=== PATIENT | female | born 2000 | race Caucasian/White ===

== ENCOUNTER 2023-06-18 12:49 | Outpatient (CLI) | payer OTHER ==
[~2023-06-18] VITALS: Ht 167.6 cm; Wt 96.4 kg
--- NOTE | 2023-06-18 13:00 | NUR ---
PT AMBULATED ONTO THE UNIT WITH SPOUSE FOR LABOR CHECK.PT DENIES LOF/VB AND CONTRACTIONS. PT REPORTS "FLYING LIGHTS", BILATERAL EDEMA, AND HEADACHES.PT REPORTS POSITIVE MOVEMENT.POC REVIEWED WITH PT.PT ADVISED TO CHANGE INTO GOWN AND PROVIDE URINE SAMPLE.PT VERBALIZES UNDERSTANDING.
[2023-06-18] MEDS ORDERED: PRENATAL TABLET PO (13:11)
[2023-06-18] MEDS ORDERED: FERRO-TIME325 MG PO (13:11)
[2023-06-18 13:30] VITALS: BP 95/59; PULSE 68
[2023-06-18 13:32] LABS: COLLECTION METHOD CLEAN CATCH
[2023-06-18 13:51] LABS: SQUAMOUS EPITHELIAL 20-50 /hpf (0-10); URINE APPEARANCE Hazy (CLEAR/HAZY); URINE BLOOD Negative (NEGATIVE); URINE COLOR Yellow (YELLOW); URINE GLUCOSE Negative (NEGATIVE); URINE KETONE Negative (NEGATIVE); URINE NITRATE Negative (NEGATIVE); URINE PROTEIN(semi-quant) Negative (NEGATIVE); URINE RBC 0-2 /hpf (0-2); URINE UROBILINOGEN 0.2 E.U/dL (0.2-1.0)
[2023-06-18 13:54] LABS: BASO % 0.5 % (0.0-2.0); EOS % 0.4 % (0.0-4.0); GRAN # 5.7 K/mm3 (1.4-6.5); GRAN % 70.1 % (42.2-75.2); LYMPH # 1.8 K/mm3 (1.2-3.4); LYMPH % 22.4 % (20.0-51.0); MEAN CELL VOLUME 88 fl (80.0-100.0); MEAN CORPUSCULAR HEMOGLOBIN 28 pg (27-31); MEAN CORPUSCULAR HGB CONC 32 g/dl (33.0-37.0); MEAN PLATELET VOLUME 10.8 fl (7.4-10.4); MONO # 0.5 K/mm3 (0.1-0.6); PLATELET COUNT 199 K/mm3 (130-400); RED BLOOD COUNT 3.87 M/mm3 (4.10-5.30); REDCELL DISTRIBUTION WIDTH-CV 12.5 % (11.5-14.5)
[2023-06-18 13:55] LABS: HEMATOCRIT 34.1 % (37.0-47.0)
[2023-06-18 14:00] VITALS: BP 102/62; PULSE 69
[2023-06-18 14:12] LABS: ALBUMIN 2.5 gm/dL (3.5-5.0); BILIRUBIN,TOTAL 0.2 mg/dL (0.2-1.2); CALCIUM 8.8 mg/dL (8.4-10.2); CREATININE, serum 0.51 mg/dL (0.57-1.11); POTASSIUM 3.8 mmol/L (3.5-4.5); TOTAL PROTEIN 5.6 gm/dL (6.2-8.1)
[2023-06-18] MEDS ORDERED: FLEXERIL5 MG PO (23:42)
[2023-06-18] MEDS ORDERED: MIRALAX PA17 GM/Dose PO (23:43)
== END 2023-06-18 14:45 | disposition home or self-care (01) ==
LOC: LDRO 12:49 → LDR 13:00 → LDRO 14:45
PROVIDERS: Obstetrics & Gynecology
DX: Z34.93 Encounter for supervision of normal pregnancy, unspecified, third trimester (principal); Z3A.34 34 weeks gestation of pregnancy
CPT/HCPCS: OP

== ENCOUNTER 2023-06-26 13:33 | Outpatient (CLI) | payer OTHER ==
[~2023-06-26] VITALS: Ht 167.6 cm; Wt 96.4 kg
--- NOTE | 2023-06-26 13:30 | NUR ---
PT AMBULATORY TO UNIT WITH MOTHER OF PT AND FATHER OF BABY. ORIENTED TO PLAN OF CARE AND ROOM. PT COMPLAINS OF LOWER BACK PAIN THAT RADIATES TO HER UMBILICUS WITH SOME PAIN RADIATING DOWN HER THIGHS, ALSO DESCRIBES LOF. EFM CAT 1, NO CTX SHOWN ON TOCO, SCANT AMOUNT OF MUCUS-LIKE LIQUID, POSITIVE REPORTS OF MOVEMENT. AMNIOTRACE NEGATIVE AND SVE CLOSED, THICK, AND HIGH PER THIS RN. PRENATALS AND HX REVIEWED WITH PT. MOTHER OF PT ANSWERS MANY QUESTIONS THAT THIS RN IS ASKING DIRECTLY TO PT. FATHER OF BABY SITTING AWAY FROM BED ON HIS PHONE.
[~2023-06-26 13:33] MED LIST: FERRO-TIME325 MG PO; FLEXERIL5 MG PO; MIRALAX PA17 GM/Dose PO; PRENATAL TABLET PO
[2023-06-26 14:00] VITALS: BP 121/75; PULSE 71
[2023-06-26 14:30] VITALS: BP 128/84; PULSE 78; TEMP 98.4
[2023-06-26 14:46] LABS: COLLECTION METHOD CLEAN CATCH
[2023-06-26 15:00] VITALS: BP 134/89; PULSE 70; TEMP 98.4
[2023-06-26 15:30] VITALS: BP 132/78; PULSE 75
[2023-06-26 15:32] LABS: URINE APPEARANCE Clear (CLEAR/HAZY); URINE BACTERIA Rare /hpf (NONE SEEN); URINE BLOOD Negative (NEGATIVE); URINE COLOR Yellow (YELLOW); URINE GLUCOSE Negative (NEGATIVE); URINE KETONE Negative (NEGATIVE); URINE NITRATE Negative (NEGATIVE); URINE PROTEIN(semi-quant) Negative (NEGATIVE); URINE RBC 0-2 /hpf (0-2); URINE UROBILINOGEN 0.2 E.U/dL (0.2-1.0); URINE WBC 0-2 /hpf (0-2)
[2023-06-26 16:00] VITALS: PULSE 70
--- NOTE | 2023-06-26 16:00 | NUR ---
UNABLE TO TRACE ACCURATE FHR DUE TO MATERNAL POSITION AND HABITUS
[2023-06-26 16:25] VITALS: PULSE 77
--- NOTE | 2023-06-26 16:25 | NUR ---
1540 CHARGE NURSE DANIA AT PT BEDSIDE DISCUSSING DISCHARGE ORDERS WITH PT AND GOING HOME. PT'S MOTHER EXCLAIMED THAT THEY ARE NOT GOING TO LEAVE WITH HER DAUGHTER IN PAIN WITHOUT US "DOING ANYTHING." 1552 CONTACTED BY THIS RN TO COME DISCUSS DISCHARGE PLAN WITH PT. 1610 AND THIS RN AT BEDSIDE. MOTHER OF PT ASKING WHAT ELSE THERE CAN BE DONE BECAUSE "MY DAUGHTER HAS NOT BEEN ABLE TO SLEEP, SHE'S NAUSEOUS, AND CAN'T GET COMFORTABLE." PT AND MOTHER OF PT EDUCATED BY THAT DISCOMFORT IN THIS STAGE OF IS NORMAL DUE TO BABY GROWING AND CREATING PRESSURE IN UNCOMFORTABLE AREAS. ALSO DESCRIBES THAT BABY VS ARE STABLE AND THAT THERE ARE NO RECORDED SIGNS OF LABOR, NO CTX OR POSITIVE AMNIOTRACE. SAYS THAT TAKING TYLENOL, ANTINAUSEA MEDICATIONS, USING HEATING PADS, MASSAGES, BELLY BINDERS, DRINKING ENOUGH FLUIDS, AND GETTING ADEQUATE REST ARE SOME OF THE BEST WAYS TO HELP IN THESE LAST STAGES. PT MOTHER EXCLAIMS "SO YOU CAN'T DO ANYTHING? JUST THOUGH SHIT AND LEAVE?" DESCRIBES WE CAN GIVE TYLENOL FOR PAIN, BENADRYL FOR SLEEP, AND ZOFRAN FOR ANTINAUSEA. PT MOTHER SAYS "NO SHE DOES NOT WANT THAT IT WILL NOT HELP WITH HOW SHE'S BEEN FEELING, IS THAT ALL YOU CAN DO?" CONTINUES TO EDUCATE PT AND MOTHER OF PT THAT ANY NARCOTIC AND NSAID MEDICATIONS ARE STRONGLY CONTRAINDICATED DURING SO NOTHING STRONGER SHOULD BE GIVEN. THEN ASKS PT AND MOTHER OF PT WHAT THEY WOULD LIKE HER TO DO IF THEY HAVE A SPECIFIC IDEA OF CARE THAT THEY WOULD LIKE. PT MENTIONS SHE IS ALLERGIC TO MORPHINE BECAUSE IT MAKES HER HALLUCINATE BUT CONTINUES TO DESCRIBE "IN THE ER AWHILE AGO THEY GAVE ME VICODIN AND THAT HELPED." MOTHER OF PT SEEN BY THIS RN NODDING HEAD AGREEING WITH PT. DID NOT ENCOURAGE TAKING NARCOTIC MEDICATION THIS FAR INTO PT , BUT THAT WE CAN START AN IV AND ADMINISTER BENADRYL AND ZOFRAN AND TYLENOL TO HELP WITH SLEEP, PAIN, AND NAUSEA. MOTHER OF PT SAID "BENADRYL IS NOT GOING TO HELP IT WILL JUST MAKE HER SLEEPY." 1625 THIS RN LEAVES ROOM TO GO GET MEDICATIONS AND IV SUPPLIES, WHEN ARRIVING BACK TO ROOM PT IS OUT OF HOSPITAL GOWN AND DRESSED, AND MOTHER OF PT AND SPOUSE HAVE THEIR THINGS ABOUT TO LEAVE THE ROOM. THIS RN ASKS PT IF SHE CAN WAIT A SECOND TO SIGN A AMA PAPER, MOTHER OF PT SAYS "NO I AM NOT DOING ANYTHING YOU BETTER GET OUT OF MY WAY." THIS RN REPORTS PT LEAVING AMA TO CHARGE NURSE AND
== END 2023-06-26 16:25 | disposition home or self-care (01) ==
LOC: LDRO 13:33
PROVIDERS: Obstetrics & Gynecology
DX: O99.891 Other specified diseases and conditions complicating pregnancy (principal); M54.9 Dorsalgia, unspecified; Z3A.00 Weeks of gestation of pregnancy not specified